=== PATIENT | female | born 1985 | race American Indian/Alaskan Native ===

== ENCOUNTER 2019-01-06 23:02 | Emergency (ER) | payer OTHER, MEDICAID ==
[2019-01-06 23:52] VITALS: BP 114/72
[2019-01-07 00:59] LABS: Basophils % (Auto) 0.2 % (0.0-1.8); Eosinophils # (Auto) 0.1 K/mm3 (0.0-0.4); Eosinophils % (Auto) 1.2 % (0.0-4.3); Hematocrit 34.6 % (30.3-42.9); Hemoglobin 11.6 gm/dl (10.1-14.3); Lymphocytes # (Auto) 2.2 K/mm3 (1.2-5.4); Lymphocytes % (Auto) 22.8 % (13.4-35.0); Mean Corpuscular HGB Conc 34 % (30-34); Mean Corpuscular Volume 84 fl (79-97); Monocytes # (Auto) 0.6 K/mm3 (0.0-0.8); Monocytes % (Auto) 6.3 % (0.0-7.3); Platelet Count 315 K/mm3 (140-440); Red Blood Count 4.14 M/mm3 (3.65-5.03); Red Cell Distribution Width 13.3 % (13.2-15.2)
[2019-01-07] MEDS ORDERED: REGLAN IV ONE (01:13)
[2019-01-07] MEDS ORDERED: NACL 0.9% 1000 ML 1,000 ML IV ONE (01:13)
[2019-01-07 01:33] LABS: Alanine Aminotransferase 11 units/L (7-56); Albumin 3.9 g/dL (3.9-5); BUN/Creatinine Ratio 13; Blood Urea Nitrogen 9 mg/dL (7-17); Calcium 9.2 mg/dL (8.4-10.2); Hemolysis Index 3
[2019-01-07] MEDS ORDERED: K-DUR PO ONE (02:06)
--- NOTE | 2019-01-07 04:04 | Emergency Department Report ---
ED N/V/D HPI - General Chief complaint: Nausea/Vomiting/Diarrhea Stated complaint: IV FLUIDS/NAUSEA Time Seen by Provider: 01/07/19 01:05 Source: patient Mode of arrival: Ambulatory Limitations: No Limitations - History of Present Illness Initial comments: Patient is a A0 33-year-old -[place] female who is approximately 12 weeks gestation and who presents to the ED with complaint of acute onset persistent intermittent nausea and vomiting for the last 1 month, worse in the last 1 week. Patient states that she is not amenable to keep anything down much in the last 2 days because of persistent intermittent nausea and vomiting. Patient denies vaginal bleeding, abdominal pain, dizziness, fever, chills, cough, chest pain, shortness of breath, sore throat, vaginal discharge, dysuria, urinary frequency and urgency, vaginal discharge or low back pain. MD complaint: nausea, vomiting, other (12 weeks gestation) -: Gradual, month(s) (1) Description of Vomiting: food contents, watery, bilious Description of Diarrhea: other (No diarrhea) Associated Abdominal Pain: No Location: diffuse Radiation: none Severity: moderate Pain Scale: 6 Quality: dull Consistency: intermittent Improves with: none Worsens with: eating Context: other ( related) Associated Symptoms: denies other symptoms, loss of appetite, nausea/vomiting. denies: myalgias, chest pain, cough, diaphoresis, fever/chills, headaches, malaise, rash, dysuria, shortness of breath, syncope, weakness - Related Data Previous Rx's Medication Instructions Recorded Last Taken Type Metoclopramide [Reglan] 10 mg PO Q8H PRN #20 tab 01/07/19 Unknown Rx Promethazine [Phenergan] 25 mg PO Q6HR PRN #30 tab 01/07/19 Unknown Rx Promethazine [Phenergan] 25 mg SC Q6HR PRN #15 supp.rect 01/07/19 Unknown Rx Ranitidine HCl [Zantac] 150 mg PO Q12H #20 tablet 01/07/19 Unknown Rx Allergies Allergy/AdvReac Type Severity Reaction Status Date / Time house dust Allergy Itching Verified 01/06/19 23:52 peanut Allergy Swelling Verified 01/06/19 23:52 ED Review of Systems ROS: Stated complaint: IV FLUIDS/NAUSEA Other details as noted in HPI Constitutional: denies: chills, fever Eyes: denies: eye pain, eye discharge, vision change ENT: denies: ear pain, throat pain Respiratory: denies: cough, shortness of breath, wheezing Cardiovascular: denies: chest pain, palpitations Endocrine: no symptoms reported Gastrointestinal: nausea, vomiting. denies: abdominal pain, diarrhea Genitourinary: denies: urgency, dysuria, discharge Musculoskeletal: denies: back pain, joint swelling, arthralgia Skin: denies: rash, lesions Neurological: denies: headache, weakness, paresthesias Psychiatric: denies: anxiety, depression Hematological/Lymphatic: denies: easy bleeding, easy bruising ED Past Medical Hx - Past Medical History Previous Medical History?: Yes Hx Asthma: Yes - Surgical History Past Surgical History?: Yes Additional Surgical History: hernia repair 1999, 2012 - Social History Smoking Status: Current Every Day Smoker Substance Use Type: Marijuana - Medications Home Medications: Home Medications Medication Instructions Recorded Confirmed Last Taken Type Metoclopramide [Reglan] 10 mg PO Q8H PRN #20 tab 01/07/19 Unknown Rx Promethazine [Phenergan] 25 mg PO Q6HR PRN #30 tab 01/07/19 Unknown Rx Promethazine [Phenergan] 25 mg SC Q6HR PRN #15 supp.rect 01/07/19 Unknown Rx Ranitidine HCl [Zantac] 150 mg PO Q12H #20 tablet 01/07/19 Unknown Rx ED Physical Exam - General Limitations: No Limitations General appearance: alert, in no apparent distress - Head Head exam: Present: atraumatic, normocephalic, normal inspection - Eye Eye exam: Present: normal appearance, PERRL, EOMI. Absent: scleral icterus, conjunctival injection, nystagmus Pupils: Present: normal accommodation - ENT ENT exam: Present: normal exam, normal orophraynx, mucous membranes moist, TM's normal bilaterally, normal external ear exam - Neck Neck exam: Present: normal inspection, full ROM. Absent: tenderness - Respiratory Respiratory exam: Present: normal lung sounds bilaterally. Absent: respiratory distress, wheezes, rales, rhonchi, chest wall tenderness, accessory muscle use - Cardiovascular Cardiovascular Exam: Present: regular rate, normal rhythm, normal heart sounds. Absent: systolic murmur, diastolic murmur, rubs, gallop - GI/Abdominal GI/Abdominal exam: Present: soft, normal bowel sounds. Absent: tenderness, guarding, rebound, hyperactive bowel sounds, hypoactive bowel sounds, organomegaly - Rectal Rectal exam: Present: deferred - Extremities Exam Extremities exam: Present: normal inspection, full ROM, normal capillary refill - Back Exam Back exam: Present: normal inspection, full ROM. Absent: tenderness, CVA tenderness (R), CVA tenderness (L), muscle spasm, paraspinal tenderness, vertebral tenderness - Neurological Exam Neurological exam: Present: alert, oriented X3, CN II-XII intact, normal gait, reflexes normal - Psychiatric Psychiatric exam: Present: normal affect, normal mood - Skin Skin exam: Present: warm, dry, intact, normal color. Absent: rash ED Course Vital Signs 01/06/19 23:47 Temperature 98.2 F Pulse Rate 79 Respiratory 18 Rate Blood Pressure 114/72 O2 Sat by Pulse 100 Oximetry - Reevaluation(s) Reevaluation #1: 01/07/19 04:05 The patient is alert and oriented 3 and is not in any distress with normal vital signs. Lab test results were reviewed and are unremarkable. The patient was treated for nausea and vomiting in the ED and was given normal saline 1 L IV bolus 1. Lab test results are unremarkable. Urinalysis had been ordered but the lab personnel reportedly ran hCG test but not complete urinalysis. The patient waited for over 7 hours and still does note a urinalysis test results. The patient asked to be discharged home regardless of the urinalysis report. 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 Patient was also advised to return to the ED immediately if symptoms get worse. ED Medical Decision Making - Lab Data Result diagrams: 01/07/19 00:13 01/07/19 00:13 - Medical Decision Making The patient is alert and oriented 3 and is not in any distress with normal vital signs. Lab test results were reviewed and are unremarkable. The patient was treated for nausea and vomiting in the ED and was given normal saline 1 L IV bolus 1. Lab test results are unremarkable. Urinalysis had been ordered but the lab personnel reportedly ran hCG test but not complete urinalysis. The patient waited for over 7 hours and still does note a urinalysis test results. The patient asked to be discharged home regardless of the urinalysis report. 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 Patient was also advised to return to the ED immediately if symptoms get worse. - Differential Diagnosis Hyperemesis gravidarum, dehydration Critical care attestation.: If time is entered above; I have spent that time in minutes in the direct care of this critically ill patient, excluding procedure time. ED Disposition Clinical Impression: Hyperemesis gravidarum Qualifiers: Weeks of gestation: 12 weeks Qualified Code(s): Z3A.12 - 12 weeks gestation of Disposition: TO HOME OR SELFCARE Is pt being admited?: No Does the pt Need Aspirin: No Condition: Stable Instructions: Hyperemesis Gravidarum (ED) Additional Instructions: MAINTAIN A CLEAR LIQUID DIET FOR THE NEXT 12-24 HOURS, TAKE MEDICATIONS FOR NAUSEA AND VOMITING AND DRINK PLENTY OF FLUIDS. FOLLOW UP WITH YOUR [facility] [employer] WORKER PHYSICIAN IN 3-5 DAYS FOR REEVALUATION. RETURN TO THE ED IMMEDIATELY IF SYMPTOMS GET WORSE. Prescriptions: Promethazine [Phenergan] 25 mg PO Q6HR PRN #30 tab PRN Reason: Nausea Promethazine [Phenergan] 25 mg SC Q6HR PRN #15 supp.rect PRN Reason: Nausea Metoclopramide [Reglan] 10 mg PO Q8H PRN #20 tab PRN Reason: Nausea Ranitidine HCl [Zantac] 150 mg PO Q12H #20 tablet Referrals: CAMRYN DALTON MD [Primary Care Provider] - 3-5 Days Time of Disposition: 06:14 Print Language: MALIAN
== END 2019-01-07 06:23 | disposition home or self-care (01) ==
LOC: ED 23:02
DX: O21.0 Mild hyperemesis gravidarum (principal); O99.331 Smoking (tobacco) complicating pregnancy, first trimester; F17.200 Nicotine dependence, unspecified, uncomplicated; O99.511 Diseases of the respiratory system complicating pregnancy, first trimester; J45.909 Unspecified asthma, uncomplicated; O99.321 Drug use complicating pregnancy, first trimester; F12.90 Cannabis use, unspecified, uncomplicated; Z98.890 Other specified postprocedural states; Z91.048 Other nonmedicinal substance allergy status; Z91.010 Allergy to peanuts; Z3A.12 12 weeks gestation of pregnancy
CPT/HCPCS: 36415; 80053; 84702; 85025; 96361; 96374; 99283; J2765; J7030